=== PATIENT | female | born 1955 | race Caucasian/White ===

== ENCOUNTER 2021-08-13 22:52 | Emergency (ER) | payer MEDICARE, OTHER ==
[2021-08-14] MEDS ORDERED: Diphtheria,Pertussis(Acell),Tetanus Vaccine 0.5 ML Syringe IM ONE (00:51)
[2021-08-14] MEDS ORDERED: Lidocaine 1% 5 ML VIAL INJECT ONE (00:51)
[2021-08-14] MEDS ORDERED: Bacitracin Oint 1 GM U/D Packet TOP ONE (00:51)
[2021-08-14] MEDS ORDERED: Clindamycin HCl 150 MG Cap PO ONE (01:23)
== END 2021-08-14 01:51 | disposition home or self-care (01) ==
LOC: JP.ED 22:52
DX: S91.311A Laceration without foreign body, right foot, initial encounter (principal); R03.0 Elevated blood-pressure reading, without diagnosis of hypertension; E78.00 Pure hypercholesterolemia, unspecified; Z88.1 Allergy status to other antibiotic agents; Z88.2 Allergy status to sulfonamides; Z79.82 Long term (current) use of aspirin; Z87.891 Personal history of nicotine dependence; Z23 Encounter for immunization; W26.8XXA Contact with other sharp object(s), not elsewhere classified, initial encounter
CPT/HCPCS: 12001; 90471; 90715; 99281; 99282; A9270